=== PATIENT | male | born 1960 | race Caucasian/White ===

== ENCOUNTER 2018-07-28 18:06 | Emergency (ER) | payer MEDICAID ==
[~2018-07-28] VITALS: Ht 182.9 cm; Wt 87.5 kg
[~2018-07-28 18:06] MED LIST: ACET325T14 PO; ALPR0.25 PO; ALPR0.257 PO; ASPI325T17 PO; CEFT2VIA53 IVPB; DAPT500V6 IV; DIPH25CA61 PO; HYDR-3237 PO; HYDR-3245 PO; LEVO750P7 IV; NYST1000 PO; PANT40TA3 PO; POLY17PO5 PO; VANC1VIA3 IV; VANC2PLA IV
[2018-07-28 18:10] VITALS: BP 162/81
--- NOTE | 2018-07-28 18:53 | NUR ---
REPORT TO SHELBIE DRUMMOND, PLAN OF CARE DISCUSSED
--- NOTE | 2018-07-28 19:05 | NUR ---
RECEIVED REPORT FROM BHANU ONTIVEROS TO ASSUME PT. CARE. PT. SITTING IN CHAIR IN ROOM 20 WITH NADIAN. AWAITING PROVIDER ORDERS. FUENTES.
== END 2018-07-28 19:23 | disposition home or self-care (01) ==
LOC: ED 18:45
DX: B02.29 Other postherpetic nervous system involvement (principal)
CPT/HCPCS: 99283